=== PATIENT | female | born 2000 | race Caucasian/White ===

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

== ENCOUNTER → 2020-04-11 | Outpatient (CLI) | payer OTHER | LOC: LAB 15:08 | DX: U07.1 COVID-19 (principal) ==

== ENCOUNTER → 2021-03-26 | Outpatient (CLI) | payer OTHER ==
[2021-03-26 14:46] LABS: BASO # 0.03 (0.02-0.10); EOS # 0.05 (0.04-0.40); HEMATOCRIT 40.8 % (35.0-45.0); HEMOGLOBIN 13.5 g/dL (12.0-15.0); LYMPH# 1.17 (1.20-3.40); MEAN CELL VOLUME 92 fl (78-95); MEAN CORPUSCULAR HEMOGLOBIN 30 pg (26-32); MEAN CORPUSCULAR HGB CONC 33 g/dL (33-37); MEAN PLATELET VOLUME 9.5 fl (7.4-10.4); MONO # 0.43 (0.10-0.60); NEU # 3.51 (1.40-6.50); PLATELET COUNT 288 K/mm3 (130-400); RED BLOOD COUNT 4.46 M/mm3 (4.10-5.30); RED CELL DISTRIBUTION WIDTH 11.5 % (11.5-14.5); WHITE BLOOD COUNT 5.2 K/mm3 (4.8-10.8)
[2021-03-26 14:54] LABS: ALBUMIN 4.6 g/dL (3.5-5.0)
[2021-03-26 14:55] LABS: CALCIUM 9.5 mg/dL (8.3-10.5)
[2021-03-26 14:56] LABS: TOTAL PROTEIN 7.3 g/dL (6.4-8.3)
[2021-03-26 14:58] LABS: TOTAL BILIRUBIN 0.5 mg/dL (0.2-1.2)
== END ==
LOC: LAB 14:24
PROVIDERS: Family Medicine
DX: Z00.00 Encounter for general adult medical examination without abnormal findings (principal); D64.9 Anemia, unspecified; R53.83 Other fatigue